=== PATIENT | female | born 1990 | race Caucasian/White ===

== ENCOUNTER 2023-06-17 03:24 | Emergency (ER) | payer OTHER, SELFPAY ==
[2023-06-17 03:31] VITALS: BP 126/74; PULSE 107; O2SAT 98
[2023-06-17 03:38] VITALS: BP 128/85; PULSE 96; RESP 16; O2SAT 98; BMI 23.0
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
--- NOTE | 2023-06-17 04:11 | PC.NURSE ---
[facility] [employer] AT BEDSIDE NOW OFFICER GILMA.
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
[2023-06-17 06:36] VITALS: BP 108/67; PULSE 80; RESP 16; TEMP 36.8; O2SAT 95
--- NOTE | 2023-06-17 06:52 | MHC.EDTECH ---
call out out to kayleigh at [phone], estimated esta given was [id number]
== END 2023-06-17 09:04 | disposition home or self-care (01) ==
PROVIDERS: Emergency Provider Emergency Medicine
DX: S09.21XA Traumatic rupture of right ear drum, initial encounter (principal); Y04.0XXA Assault by unarmed brawl or fight, initial encounter; Y93.9 Activity, unspecified; Y92.9 Unspecified place or not applicable; Y99.9 Unspecified external cause status; H91.92 Unspecified hearing loss, left ear
CPT/HCPCS: 99284